=== PATIENT | female | born 1985 | race Two or more races ===

== ENCOUNTER 2022-08-28 02:47 | Observation (INO) | payer OTHER ==
[~2022-08-28] VITALS: Ht 157.5 cm; Wt 83.0 kg
[2022-08-28] MEDS ORDERED: PREN-96 OR (04:17)
== END 2022-08-28 05:13 | disposition home or self-care (01) ==
LOC: ER 02:47 → LDRP 02:48
PROVIDERS: ADMIT Obstetrics & Gynecology Obstetrics; ATTEND Obstetrics & Gynecology Obstetrics
DX: O36.8120 Decreased fetal movements, second trimester, not applicable or unspecified (principal); Z3A.27 27 weeks gestation of pregnancy
CPT/HCPCS: 59025; 76815; G0378